=== PATIENT | female | born 1985 ===

== ENCOUNTER 2020-07-08 08:39 | Emergency (ER) | payer SELFPAY ==
[2020-07-08 08:53] VITALS: BP 104/56
--- NOTE | 2020-07-08 10:43 | Emergency Department Report ---
ED Eye Problem HPI - General Chief complaint: Eye Problems Stated complaint: RT EYE SWELLING/LFT EYE PAIN Time Seen by Provider: 07/08/20 10:11 Source: patient Mode of arrival: Ambulatory Limitations: No Limitations, Language Barrier, Other (Cfo Controller was used) - History of Present Illness Initial comments: This very pleasant 34-year-old female presents the emergency department the chief complaint of right upper eyelid swelling over the past 4 days. She reports on the medial upper eyelid she felt some warmth followed by the next morning swelling and has been having some increased pain since. She denies any changes in her vision. She went to a clinic yesterday and was given a steroid eyedrop which has made her symptoms worse. She denies any associated fevers, chills, night sweats, headache, dizziness, blurry vision, nausea, vomiting, diarrhea, chest pain, shortness of breath or any other associated symptoms. - Related Data Previous Rx's Medication Instructions Recorded Last Taken Type cephALEXin [Keflex] 500 mg PO Q6HR #40 capsule 07/08/20 Unknown Rx Allergies Allergy/AdvReac Type Severity Reaction Status Date / Time No Known Allergies Allergy Unverified 07/08/20 08:49 ED Review of Systems ROS: Stated complaint: RT EYE SWELLING/LFT EYE PAIN Other details as noted in HPI Comment: All other systems reviewed and negative Constitutional: denies: chills, fever Eyes: as per HPI, eye pain. denies: eye discharge, vision change ENT: denies: ear pain, throat pain Respiratory: denies: cough, shortness of breath, wheezing Cardiovascular: denies: chest pain, palpitations Endocrine: no symptoms reported Gastrointestinal: denies: abdominal pain, nausea, diarrhea Genitourinary: denies: urgency, dysuria, discharge Musculoskeletal: denies: back pain, joint swelling, arthralgia Skin: denies: rash, lesions Neurological: denies: headache, weakness, paresthesias Psychiatric: denies: anxiety, depression Hematological/Lymphatic: denies: easy bleeding, easy bruising ED Past Medical Hx - Past Medical History Previous Medical History?: No - Surgical History Past Surgical History?: No - Medications Home Medications: Home Medications Medication Instructions Recorded Confirmed Last Taken Type cephALEXin [Keflex] 500 mg PO Q6HR #40 capsule 07/08/20 Unknown Rx ED Physical Exam - General Limitations: No Limitations General appearance: alert, in no apparent distress - Head Head exam: Present: atraumatic, normocephalic - Eye Eye exam: Present: normal appearance, PERRL, EOMI, other (There is soft tissue edema to the right upper eyelid. No obvious stye. No induration. No periorbital edema. No pain with extraocular movements. The eye exam is normal otherwise) - ENT ENT exam: Present: normal exam, normal orophraynx, mucous membranes moist - Neck Neck exam: Present: normal inspection, tenderness, full ROM. Absent: meningismus - Respiratory Respiratory exam: Present: normal lung sounds bilaterally. Absent: respiratory distress, wheezes, rales, rhonchi, stridor, chest wall tenderness - Cardiovascular Cardiovascular Exam: Present: regular rate, normal rhythm, normal heart sounds. Absent: systolic murmur, diastolic murmur, rubs, gallop - GI/Abdominal GI/Abdominal exam: Present: soft, normal bowel sounds. Absent: distended, tenderness, guarding, rebound, rigid - Extremities Exam Extremities exam: Present: normal inspection, full ROM, normal capillary refill. Absent: tenderness - Back Exam Back exam: Present: normal inspection, full ROM. Absent: tenderness, CVA tenderness (R), CVA tenderness (L) - Neurological Exam Neurological exam: Present: alert, oriented X3, CN II-XII intact, normal gait - Psychiatric Psychiatric exam: Present: normal affect, normal mood - Skin Skin exam: Present: warm, dry, intact, normal color. Absent: rash ED Course Vital Signs 07/08/20 08:52 Temperature 98.3 F Pulse Rate 62 Respiratory 19 Rate Blood Pressure 104/56 O2 Sat by Pulse 97 Oximetry ED Medical Decision Making - Medical Decision Making Patient's exam was consistent with blepharitis. She had no symptoms of septal or preseptal cellulitis, no injury. The eye itself was normal in appearance other than a mild erythema to the conjunctiva. I will treat the patient with Keflex and frequent warm compresses and recommended outpatient follow-up with ophthalmology if her symptoms change or worsen. Recommend she return to the ER with any change or worsening symptoms. She verbalized understanding of the diagnosis, treatment plan and follow-up instructions and all of her questions were answered. - Differential Diagnosis Blepharitis, chalazion, hordeolum Critical care attestation.: If time is entered above; I have spent that time in minutes in the direct care of this critically ill patient, excluding procedure time. ED Disposition Clinical Impression: Blepharitis of right upper eyelid Qualifiers: Blepharitis type: unspecified type Qualified Code(s): H01.001 - Unspecified blepharitis right upper eyelid Disposition: DC- TO HOME OR SELFCARE Is pt being admited?: No Condition: Stable Instructions: Blepharitis Prescriptions: cephALEXin [Keflex] 500 mg PO Q6HR #40 capsule Referrals: PRIMARY CARE, [Primary Care Provider] - 3-5 Days LOURDES LOCKE MD [Staff Physician] - 3-5 Days Time of Disposition: 10:42
== END 2020-07-08 11:01 | disposition home or self-care (01) ==
LOC: ED 08:39
DX: H01.001 Unspecified blepharitis right upper eyelid (principal); Z79.899 Other long term (current) drug therapy
CPT/HCPCS: 99281